=== PATIENT | female | born 1980 | race Caucasian/White ===

== ENCOUNTER 2016-12-28 05:32 | Day surgery (SDC) | payer MEDICAID ==
[2016-12-27 09:21] VITALS: BMI 16.9
[2016-12-27 09:52] LABS: ADD SCAN DIFF NO
[2016-12-27 10:00] LABS: ADD UMIC YES; BASOPHILS % 0.3 % (0.0-2.0); EOSINOPHILS # 0.2 10^3/ul (0.0-0.5); HEMATOCRIT 41.8 % (37.0-47.0); HEMOGLOBIN 13.5 g/dl (12.0-16.0); LYMPHOCYTES # 2.3 10^3/ul (0.8-2.9); LYMPHOCYTES % 31.1 % (15.0-51.0); MEAN CORPUSCULAR HEMOGLOBIN 27.4 pg (29.0-33.0); MEAN CORPUSCULAR HGB CONC 32.3 g/dl (32.0-37.0); MEAN CORPUSCULAR VOLUME 84.8 fl (82.0-101.0); MEAN PLATELET VOLUME 9.7 fl (7.4-10.4); MONOCYTE # 0.5 10^3/ul (0.3-0.9); MONOCYTES % 6.6 % (0.0-11.0); NEUTROPHIL # 4.5 10^3/ul (1.6-7.5); NEUTROPHILS % 59.7 % (39.0-77.0); PLATELET COUNT 343 10^3/UL (140-415); RED BLOOD COUNT 4.93 10^6/ul (4.20-5.40); RED CELL DISTRIBUTION WIDTH 13.2 % (11.5-14.5); URINE BILIRUBIN (Dip) NEGATIVE (NEGATIVE); URINE BLOOD (Dip) NEGATIVE (NEGATIVE); URINE COLOR LT. YELLOW (YELLOW); URINE GLUCOSE (Dip) NEGATIVE (NEGATIVE); URINE KETONES (Dip) NEGATIVE (NEGATIVE); URINE LEUKOCYTE ESTERASE (Dip) 1+ (NEGATIVE); URINE NITRITE (Dip) NEGATIVE (NEGATIVE); URINE TOTAL PROTEIN (Dip) NEGATIVE (NEGATIVE); URINE UROBILINOGEN (Dip) 0.2 E.U./dL (0.1-1.0); WHITE BLOOD COUNT 7.5 10^3/ul (4.8-10.8)
[2016-12-27 10:19] LABS: INR 0.91; PARTIAL THROMBOPLASTIN TIME 27.5 Sec (25.0-35.0); PROTIME 12.2 Sec (12.2-14.2)
[2016-12-27 10:24] LABS: ALBUMIN 4.4 g/dl (3.3-4.9); ALBUMIN/GLOBULIN RATIO 1.33; BILIRUBIN,INDIRECT 0.4 mg/dl (0-1.1); BILIRUBIN,TOTAL 0.4 mg/dl (0.2-1.3); TOTAL PROTEIN 7.7 g/dl (6.1-8.1)
[2016-12-27 10:36] LABS: BACTERIA,URINE FEW; SQUAMOUS EPITHELIAL CELL,UR MANY; URINE RBCS NONE SEEN /HPF (0)
[2016-12-27 10:38] LABS: CALCIUM 9.6 mg/dl (8.4-10.2); CREATININE 0.56 mg/dl (0.44-1.00); POTASSIUM 4.1 mmol/L (3.5-5.1)
--- NOTE | 2016-12-27 23:59 | PREOPHP ---
DATE OF ADMISSION: 12/28/2016 She is to be admitted tomorrow 12/28/2016 for a laparoscopic bilateral tubal ligation. HISTORY OF PRESENT ILLNESS: This is a 36-year-old female, 8, para 4, with a history of one ectopic , 2 spontaneous abortions, 2 sections and 2 normal vaginal deliveries, wh o has requested sterilization on the basis of multiparity. The alternatives to this, benefits of th e procedure, the risks, and possible complications as well as 1% failure rate of the procedure was d iscussed with the patient in detail at the office. All her questions were answered to her satisfact ion. She signed the appropriate surgical informed consents. PAST MEDICAL HISTORY: The patient denies any medical problems including cardiovascular disease, hy pertension, diabetes, liver disease, renal disease, thyroid disease, or neurological problems. FAMILY HISTORY: Noncontributory. REVIEW OF SYSTEMS: A 12-point review of systems is noncontributory. PHYSICAL EXAMINATION: GENERAL: Well-developed and nourished, in no distress, alert and oriented x3 with a height of 5 fee t 2 inches and a weight of 170 pounds. BMI is 31. VITAL SIGNS: Show temperature to be 98, blood pressure is 88/64, respirations are 16/minute, the pu lse is 72 per minute and regular. HEENT: Within normal limits. NECK: Supple. Thyroid is nonpalpable. There is no lymphadenopathy. BREASTS: Show no masses or lumps. Nipples normal. LUNGS: Clear to percussion and auscultation. HEART: Revealed normal sinus rhythm without a murmur. ABDOMEN: Soft without organomegaly or hernias. PELVIC: Normal external genitalia. Cervix is normal without lesions. Bimanual exam, the uterus sm all and firm. There are no adnexal masses present. EXTREMITIES: Within normal limits. NEUROLOGIC: Also normal. IMPRESSION: Multiparity. The patient desires sterilization. PLAN: She is to be admitted on 12/28/2016. Dictated By: BENRABE TARIQ/MARY Conf#: [id number] DID#: [id number]
[~2016-12-28] VITALS: Ht 157.5 cm; Wt 78.0 kg
[2016-12-28] VITALS (9 sets, daily range): BP systolic 94–109; BP diastolic 50–63; PULSE 62–86; RESP 14–16; Ht 157.5 cm; Wt 78.0 kg
[~2016-12-28 05:32] MED LIST: LACTATED RINGER'S 1,000 ML IV* SCH
[2016-12-28] MEDS ORDERED: BUPIVACAINE 0.5%/EPI (SDV) 30 ML INJ ONE (07:14)
[2016-12-28] MEDS ORDERED: ROCURONIUM 50 MG INJ ONE (07:31)
[2016-12-28] MEDS ORDERED: PROPOFOL 20 ML ONE (07:31)
[2016-12-28] MEDS ORDERED: MIDAZOLAM 1 MG/ML 2 ML INJ ONE (07:31)
[2016-12-28] MEDS ORDERED: FENTAnyl 50 MCG/ML VIAL ONE (07:31)
[2016-12-28] MEDS ORDERED: CEFAZOLIN 1 GM INJ ONE (07:55)
[2016-12-28] MEDS ORDERED: KETOROLAC 30 MG INJ ONE (07:55)
[2016-12-28] MEDS ORDERED: DEXAMETHASONE 4 MG/ML 1 ML INJ ONE (07:55)
[2016-12-28] MEDS ORDERED: METOCLOPRAMIDE 10 MG INJ ONE (07:55)
[2016-12-28] MEDS ORDERED: NEOSTIGMINE 3 MG/3 ML SYRINGE ONE (07:55)
[2016-12-28] MEDS ORDERED: ONDANSETRON 4 MG INJ ONE (07:55)
[2016-12-28] MEDS ORDERED: GLYCOPYRROLATE 1 MG INJ ONE (07:55)
[2016-12-28] MEDS ORDERED: METOCLOPRAMIDE 10 MG INJ IV PRN (08:00)
[2016-12-28] MEDS ORDERED: DIPHENHYDRAMINE 50 MG INJ IV PRN (08:00)
[2016-12-28] MEDS ORDERED: MEPERIDINE 25 MG INJ IV PRN (08:00)
[2016-12-28] MEDS ORDERED: EPHEDrine SULFATE 50 MG/5 ML SYG IV PRN (08:00)
[2016-12-28] MEDS ORDERED: morphine (1 MG/ML) 10ML SYRINGE IV PRN ×3 (08:00)
[2016-12-28] MEDS ORDERED: PHENYLephrine (100 MCG/ML) 5ML SYG ONE (08:00)
[2016-12-28] MEDS ORDERED: ONDANSETRON 4 MG INJ IV PRN ×2 (08:00→09:00)
[2016-12-28] MEDS ORDERED: HYDROmorphONE (0.2 MG/ML) 10ML SYG IV PRN ×3 (08:00)
[2016-12-28] MEDS ORDERED: BUPIVACAINE 0.5%/EPI (SDV) 30 ML INJ INJ ONE (08:09)
[2016-12-28] MEDS ORDERED: LACTATED RINGER'S 1,000 ML IV SCH (08:35)
--- NOTE | 2016-12-28 08:39 | PD.PPDC ---
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
[2016-12-28] MEDS ORDERED: ACETAMINOPHEN 325 MG TAB PO PRN (09:00)
[2016-12-28] MEDS ORDERED: OXYCODONE/ACETAMINOPHEN (5/325) TAB PO PRN (09:00)
[2016-12-28] MEDS ORDERED: HYDROCODONE/APAP (5/325) TAB PO PRN (09:00)
[2016-12-28] MEDS ORDERED: morphine 2 MG INJ IV PRN (09:00)
[2016-12-28] MEDS ORDERED: IBUPROFEN 600 MG TAB PO PRN (09:00)
--- NOTE | 2016-12-28 09:57 | OPR ---
DATE OF OPERATION: PREOPERATIVE DIAGNOSES: Multiparity. POSTOPERATIVE DIAGNOSES: Multiparity. OPERATION PERFORMED: Laparoscopic bilateral tubal ligation. SURGEON: Bernabe Woods MD ANESTHESIA: General. ANESTHESIOLOGIST: Dr. Hawthorne COMPLICATIONS: None. SPECIMENS: None. ESTIMATED BLOOD LOSS: Minimal. PROCEDURE AND FINDINGS: With the patient under general anesthesia, laid on the table in the dorsal lithotomy position. Her abdomen, upper thighs were prepped with ChloraPrep and the vagina and the p erineum with Betadine. A Franco catheter was inserted. After 3 minutes, she was draped in the usual sterile fashion. A small 5 mm incision was done at the level of the umbilicus. Through this needl e while we were tenting up the anterior abdominal wall, the Veress needle was inserted. Once the ti p of the needle was ascertained to be intraperitoneal by the hanging drop saline technique, it was t hen connected to the CO2 insufflator. Good pneumoperitoneum was obtained, and the needle was then r emoved. A 5 mm trocar was then inserted. Through this trocar, a 5 mm laparoscope with the endo cam era was placed in. The patient was placed in Trendelenburg position. A second port was inserted kelly prapubically in the hypogastric area under direct vision with another 5 mm trocar. Through this tro car now, the Kleppinger clamp was inserted, connected to the Bovie at 35 valdez of current cautery. The pelvic organs looked normal, uterus, tubes, and ovaries. The right tube was picked up in its mi d portion and burned through and through for 1.5 cm. The same was repeated on the contralateral manuel e. There were no complications. Hemostasis was good. All the instruments were then removed from t he patient's abdomen as well as as much CO2 as possible. The incisions were infiltrated with 0.5% M arcaine with epinephrine, a total of 20 mL. The incisions were closed with 4-0 Monocryl. Band-Aids were applied and the patient was taken to recovery room with all vital signs stable. EBL was minim al. Needle, sponge, and instrument count at the end of the procedure was correct twice. Dictated By: BERNABE TARIQ/MARY Conf#: [id number] DID#: [id number]
== END 2016-12-28 10:01 | disposition home or self-care (01) ==
LOC: SDS 05:32
PROVIDERS: ATTEND Specialist
DX: Z30.2 Encounter for sterilization (principal)
CPT/HCPCS: 58670; 80053; 81001; 84703; 85025; 85610; 85730; 86850; 86900; 86901; J0690; J1100; J1885; J2250; J2405; J2710; J2765; J3010; Z7512; Z7610; J1170; J2175; J2370

== ENCOUNTER 2019-01-06 16:20 | Emergency (ER) | payer MEDICAID ==
[~2019-01-06] VITALS: Wt 79.7 kg
[2019-01-06 16:24] VITALS: BP 107/59; PULSE 88; RESP 20
--- NOTE | 2019-01-06 17:27 | ERD ---
ER Documentation Chief Complaint Chief Complaint EAR RING BACK PLATE LODGED IN LEFT EAR. SINCE YESTERDAY HPI 38-year-old female presents with complaint of earing back lodged in ear canal si nce last Sunday. Denies any hearing loss, fevers, tinnitus, discharge. Dernies treatments. States that there is intermittent pain. ROS All systems reviewed and are negative except as per history of present illness. Medications Home Meds Active Scripts Hydrocodone/Acetaminophen (Orestes 5-325 Tablet) 1 Each Tablet, 1 TAB PO Q6H PRN for PAIN, #7 TAB Prov:JADA CHRIS 01/06/19 Allergies Allergies: Coded Allergies: No Known Allergy (Unverified , 12/28/16) PMhx/Soc History of Surgery: Yes (TUBAL LIGATION, 2 ) Anesthesia Reaction: No Hx Neurological Disorder: No Hx Respiratory Disorders: No Hx Cardiac Disorders: No Hx Psychiatric Problems: No Hx Miscellaneous Medical Probl: No Hx Alcohol Use: No Hx Substance Use: No Hx Tobacco Use: No FmHx Family History: No diabetes, No coronary disease, No other Physical Exam Vitals Vital Signs Date Temp Pulse Resp B/P (MAP) Pulse Ox O2 O2 Flow FiO2 Time Delivery Rate 01/06/19 98.7 88 20 107/59 98 16:24 (75) Physical Exam Const: No acute distress Head: Atraumatic Eyes: Normal Conjunctiva ENT: Normal External Ears, Nose and Mouth. small metallic object noted in the left canal. TM is occluded. There is no discharge or blood noted. Neck: Full range of motion. No meningismus. Resp: Clear to auscultation bilaterally Cardio: Regular rate and rhythm, no murmurs Abd: Soft, non tender, non distended. Normal bowel sounds Skin: No petechiae or rashes Back: No midline or flank tenderness Ext: No cyanosis, or edema Neur: Awake and alert Psych: Normal Mood and Affect Results 24 hrs Current Medications Medications Dose Sig/Brent Start Time Status Last (Trade) Ordered Route PRN Stop Time Admin Dose Reason Admin Lidocaine 20 ml ONCE ONCE 01/06/19 DC (Xylocaine SC 17:30 01/06/19 1% (Mdv) 20 17:31 ml) Oxycodone/ 1 tab ONCE ONCE 01/06/19 DC 01/06/19 Acetaminophen PO 18:00 01/06/19 17:54 (Percocet 18:01 (5/ 325)) Procedures/MDM MDM: Attempt was made to dislodge the object using alligator forceps however given the object size and proximity to the TM I did not want to risk TM rupture so I made one light attempt and then stopped after it became clear that it would not be easily dislodged. After my attempt there was no pain, discharge, diminished hearing, or bleeding. I called Dr. Mccormick ENT and he agreed to come in. Dr. Mccormick was able to successfully remove the object from patient's ear. Dr. Mccormick stated that no prophylactic antibiotics or Outpatient follow-up was necessary. I have low suspicion for TM rupture, infection, retained foreign body, or any other emergent condition. Patient discharged with strict ER precautions. Patient advised to follow up with PMD. All questions answered at discharge. Departure Diagnosis: Primary Impression: Retained foreign body Condition: Stable JADA CHRIS Jan 06, 2019 17:27
[2019-01-06] MEDS ORDERED: LIDOCAINE 1% (MDV) 20 ML INJ SC ONE (17:30)
[2019-01-06] MEDS ORDERED: OXYCODONE/ACETAMINOPHEN (5/325) TAB PO ONE (18:00)
[2019-01-06] MEDS ORDERED: HYDR-4011 PO (18:41)
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
== END 2019-01-06 18:56 | disposition home or self-care (01) ==
LOC: FTE 16:20
DX: T16.2XXA Foreign body in left ear, initial encounter (principal); W49.04XA Ring or other jewelry causing external constriction, initial encounter; Y92.9 Unspecified place or not applicable
CPT/HCPCS: 69200; Z7502; Z7610